=== PATIENT | male | born 1965 | race Caucasian/White ===

== ENCOUNTER 2016-05-26 12:55 | Emergency (ER) | payer SELFPAY ==
[~2016-05-26] VITALS: Ht 167.6 cm; Wt 78.4 kg
[2016-05-26] MEDS ORDERED: HUMULIN 70100 UNIT/3 SC (13:24)
[2016-05-26] MEDS ORDERED: SINEQUAN10 MG PO (13:24)
[2016-05-26] MEDS ORDERED: BLOOD PRESSURE MED (13:25)
[2016-05-26] MEDS ORDERED: FLOMAX0.4 MG PO (13:26)
[2016-05-26] MEDS ORDERED: NEURONTIN300 MG PO (13:26)
[2016-05-26] MEDS ORDERED: ASPIRIN81 M2 PO (13:27)
[2016-05-26] MEDS ORDERED: CLOTRIMAZOLE15 GM TP (14:28)
[2016-05-26] MEDS ORDERED: ATARAX,VISTARIL25 MG PO (14:28)
[2016-05-26 14:49] VITALS: BP 119/77
== END 2016-05-26 14:50 | disposition home or self-care (01) ==
LOC: EME 12:55
DX: B35.4 Tinea corporis (principal); I10 Essential (primary) hypertension; E11.9 Type 2 diabetes mellitus without complications; E78.00 Pure hypercholesterolemia, unspecified; F17.200 Nicotine dependence, unspecified, uncomplicated; Z79.82 Long term (current) use of aspirin; Z79.4 Long term (current) use of insulin
CPT/HCPCS: 99281; 99284; Q0177